=== PATIENT | male | born 1965 | race Caucasian/White ===

== ENCOUNTER 2016-09-04 03:07 | Inpatient (IN) | payer OTHER ==
[~2016-09-04] VITALS: Ht 190.5 cm; Wt 121.6 kg
[2016-09-04 04:03] LABS: BASOPHIL % 0.5 % (0-2); PLATELET COUNT 220 x10^3mcL (130-400)
[2016-09-04 04:06] LABS: RED CELL DISTRIBUTION WIDTH 16.4 % (11.5-14.5)
[2016-09-04 04:29] LABS: BILIRUBIN TOTAL 0.4 mg/dL (0.20-1.00); CALCIUM 7.9 mg/dL (8.5-10.1); CARBON DIOXIDE 25.3 mmol/L (21-32); MAGNESIUM 2.1 mg/dL (1.8-2.4); POTASSIUM SERUM 4.6 mmol/L (3.5-5.1); TOTAL PROTEIN, SERUM 6.5 g/dL (6.4-8.2)
[2016-09-04 04:46] LABS: ALBUMIN 2.7 g/dL (3.4-5.0)
[2016-09-04 04:47] LABS: CREATININE SERUM 9.4 mg/dL (0.7-1.3)
[2016-09-04 06:34] LABS: T3 TOTAL 0.97 ng/mL
[2016-09-04 07:20] LABS: FREE T4 0.88 ng/dL (0.76-1.46); T4(THYROXINE) 6.2 ug/dL (4.7-13.3)
[2016-09-04] MEDS ORDERED: COZAAR100 MG PO (07:38)
[2016-09-04] MEDS ORDERED: NOR5 PO (07:59)
[2016-09-04] MEDS ORDERED: LIPITOR20 MG PO (08:00)
[2016-09-04] MEDS ORDERED: ASPIRIN LOW DOS81 MG PO (08:07)
[2016-09-04 08:19] VITALS: BP 188/94
[2016-09-04] MEDS ORDERED: CARVEDILOL25 M1 PO (08:24)
[2016-09-04] MEDS ORDERED: GABAPENTIN300 M4 PO (08:25)
[2016-09-04 08:37] LABS: CARBON DIOXIDE 25.9 mmol/L (21-32); POTASSIUM SERUM 4.5 mmol/L (3.5-5.1)
[2016-09-04 08:39] LABS: CALCIUM 8.1 mg/dL (8.5-10.1); CREATININE SERUM 9.8 mg/dL (0.7-1.3)
[2016-09-04 08:49] LABS: PHOSPHOROUS 5.2 mg/dL (2.5-4.9)
[2016-09-04 08:50] LABS: CHOLESTEROL/HDL RATIO 2.9
[2016-09-04 09:09] VITALS: Ht 190.5 cm; Wt 121.6 kg
[2016-09-04] MEDS ORDERED: LEVEMIR100 U/M1 SC (10:19)
[2016-09-04 11:15] VITALS: BP 188/94
[2016-09-04 11:45] VITALS: BP 168/90
[2016-09-04 15:15] VITALS: BP 140/86
[2016-09-04 15:16] LABS: CALCIUM 8.4 mg/dL (8.5-10.1); CARBON DIOXIDE 27.2 mmol/L (21-32); POTASSIUM SERUM 3.1 mmol/L (3.5-5.1)
[2016-09-04 15:18] LABS: CREATININE SERUM 6.3 mg/dL (0.7-1.3)
[2016-09-05 05:44] VITALS: BP 142/72
[2016-09-05 06:06] LABS: BASOPHIL % 0.8 % (0-2); PLATELET COUNT 209 x10^3mcL (130-400)
[2016-09-05 06:15] LABS: CALCIUM 8.3 mg/dL (8.5-10.1); CARBON DIOXIDE 26.1 mmol/L (21-32); MAGNESIUM 1.8 mg/dL (1.8-2.4); PHOSPHOROUS 5.9 mg/dL (2.5-4.9); POTASSIUM SERUM 3.7 mmol/L (3.5-5.1)
[2016-09-05 06:46] LABS: RED CELL DISTRIBUTION WIDTH 16.7 % (11.5-14.5)
[2016-09-05 07:54] LABS: CREATININE SERUM 7.7 mg/dL (0.7-1.3)
[2016-09-05 11:37] VITALS: BP 136/75
[2016-09-05 12:43] LABS: UA SPECIFIC GRAVITY 1.015 (1.005-1.035); microscopic required? YES; urine erythrocyte 1+ (NEGATIVE)
[2016-09-05 13:19] LABS: AMPHETAMINE QUAL UR NONE DETECTED (NEG <=1000)
[2016-09-05 14:01] VITALS: BP 154/79
[2016-09-05 17:43] VITALS: BP 132/71
[2016-09-05 22:33] VITALS: BP 140/79; BP 158/73
[2016-09-06 05:20] VITALS: BP 130/78
[2016-09-06 11:28] LABS: BASOPHIL % 0.8 % (0-2); PLATELET COUNT 219 x10^3mcL (130-400)
[2016-09-06 11:29] LABS: RED CELL DISTRIBUTION WIDTH 16.7 % (11.5-14.5)
[2016-09-06 11:38] LABS: CALCIUM 8.1 mg/dL (8.5-10.1); CARBON DIOXIDE 28.5 mmol/L (21-32); PHOSPHOROUS 5.7 mg/dL (2.5-4.9); POTASSIUM SERUM 3.8 mmol/L (3.5-5.1)
[2016-09-06 11:46] LABS: CREATININE SERUM 7.9 mg/dL (0.7-1.3)
[2016-09-06 17:37] VITALS: BP 164/88
[2016-09-06 21:27] VITALS: BP 139/90
[2016-09-07 05:18] VITALS: BP 116/77
[2016-09-07 06:15] LABS: BASOPHIL % 0.8 % (0-2); PLATELET COUNT 229 x10^3mcL (130-400)
[2016-09-07 06:26] LABS: CALCIUM 8.2 mg/dL (8.5-10.1); CARBON DIOXIDE 31.6 mmol/L (21-32); PHOSPHOROUS 5.8 mg/dL (2.5-4.9); POTASSIUM SERUM 3.5 mmol/L (3.5-5.1)
[2016-09-07 06:29] LABS: CREATININE SERUM 6.6 mg/dL (0.7-1.3)
[2016-09-07 06:40] LABS: RED CELL DISTRIBUTION WIDTH 17.1 % (11.5-14.5)
[2016-09-07 09:20] VITALS: BP 143/84
[2016-09-07] MEDS ORDERED: LEVEMIR100 U/M1 SQ (14:37)
[2016-09-07] MEDS ORDERED: THERA TABS1 TAB PO (14:38)
[2016-09-07] MEDS ORDERED: LAC PO (14:38)
[2016-09-07] MEDS ORDERED: ZIT250 PO (14:39)
[2016-09-07 14:47] VITALS: BP 143/84
== END 2016-09-07 15:46 | disposition home or self-care (01) | DRG 291 ==
LOC: ED 03:07 → DU 04:50 → IC 04:50 → DU 21:46 → MU 09-06 11:31
PROVIDERS: Emergency Medicine; Family Medicine; ADMIT Family Medicine
PROC: 05HM33Z Insertion of Infusion Device into Right Internal Jugular Vein, Percutaneous Approach (ICD-10-PCS; principal; 2016-09-04)
PROC: B543ZZA Ultrasonography of Right Jugular Veins, Guidance (ICD-10-PCS; 2016-09-04)
DX: I13.2 Hypertensive heart and chronic kidney disease with heart failure and with stage 5 chronic kidney disease, or end stage renal disease (principal); I50.43 Acute on chronic combined systolic (congestive) and diastolic (congestive) heart failure; N18.6 End stage renal disease; J96.01 Acute respiratory failure with hypoxia; E11.00 Type 2 diabetes mellitus with hyperosmolarity without nonketotic hyperglycemic-hyperosmolar coma (NKHHC); E43 Unspecified severe protein-calorie malnutrition; N17.0 Acute kidney failure with tubular necrosis; K85.90 Acute pancreatitis without necrosis or infection, unspecified; I24.8 Other forms of acute ischemic heart disease; I16.1 Hypertensive emergency; N39.0 Urinary tract infection, site not specified; E87.1 Hypo-osmolality and hyponatremia; M94.0 Chondrocostal junction syndrome [Tietze]; E11.65 Type 2 diabetes mellitus with hyperglycemia; E11.40 Type 2 diabetes mellitus with diabetic neuropathy, unspecified; D63.1 Anemia in chronic kidney disease; E83.39 Other disorders of phosphorus metabolism; E78.5 Hyperlipidemia, unspecified; Z99.2 Dependence on renal dialysis; Z79.82 Long term (current) use of aspirin; Z79.4 Long term (current) use of insulin; Z87.891 Personal history of nicotine dependence; Z68.33 Body mass index [BMI] 33.0-33.9, adult
CPT/HCPCS: 36556; 36600; 82962; 83880; 84439; J0360; J0696; J1170; J1642; J1644; J1815; J2060; J2270; J3490; J7030; J7040; J7620; Q0092; Q9967